=== PATIENT | female | born 1980 | race Caucasian/White ===

== ENCOUNTER 2017-11-16 23:24 | Emergency (ER) | payer MEDICAID ==
[~2017-11-16] VITALS: Ht 162.6 cm; Wt 55.0 kg
[2017-11-16] MEDS ORDERED: ZIPRASIDONE 20 MG INJ IM ONE (23:35)
[2017-11-17] MEDS ORDERED: ZIPRASIDONE 20 MG INJ IM ONE
[2017-11-17 07:31] VITALS: BP 151/94
== END 2017-11-17 07:55 | disposition home or self-care (01) ==
LOC: ED 11-17 06:30
DX: F15.129 Other stimulant abuse with intoxication, unspecified (principal); F15.122 Other stimulant abuse with intoxication with perceptual disturbance; R44.3 Hallucinations, unspecified
CPT/HCPCS: 96372; 99283; J3486